=== PATIENT | male | born 1940 | race Caucasian/White ===

== ENCOUNTER 2016-12-02 05:34 | Inpatient (IN) | payer MEDICARE ==
[~2016-12-02] VITALS: Ht 177.8 cm; Wt 85.0 kg
[2016-12-02] VITALS (8 sets, daily range): BP systolic 110–132; BP diastolic 66–75; PULSE 50–77; RESP 12–18; O2SAT 95–100
[2016-12-02] MEDS: Lactated Ringer's 1,000 ML IV SCH ×3 (05:00→06:15)
[~2016-12-02 05:34] MED LIST: MULT-1018 PO; excedrin
[2016-12-02] MEDS ORDERED: tylenol PO (05:48)
[2016-12-02] MEDS ORDERED: CeFAZolin 2 Gm/50 mL D5W Duplex Bag IV ONE (05:54)
[2016-12-02] MEDS ORDERED: Vancomycin 1,000mg/200 mL NS IV ONE (05:55)
[2016-12-02] MEDS ORDERED: CeFAZolin Inj 2 GM in IV Premix 1 EACH IV SCH (06:30)
[2016-12-02] MEDS ORDERED: Lactated Ringer's 1,000 ML IV SCH (07:05)
[2016-12-02] MEDS ORDERED: MetoCLOpramide 5 mg/mL 2 mL Inj IVPUSH PRN (07:05)
[2016-12-02] MEDS ORDERED: Ondansetron 2 mg/mL 2 mL Inj IVPUSH PRN ×2 (07:05→09:55)
[2016-12-02] MEDS ORDERED: Dexamethasone 4 mg/mL Inj IVPUSH PRN (07:05)
[2016-12-02] MEDS ORDERED: EPHEDrine Sulfate 50 mg/mL Inj IVPUSH PRN (07:05)
[2016-12-02] MEDS ORDERED: HYDROmorphone 1 mg/mL Inj IVPUSH PRN (07:05)
[2016-12-02] MEDS ORDERED: Lactated Ringer's 500 ML IV PRN (07:05)
[2016-12-02] MEDS ORDERED: Phenylephrine 10,000 mCg/mL Inj IVPUSH PRN (07:05)
[2016-12-02] MEDS ORDERED: fentaNYL-PF 50 mCg/mL 2 mL Inj IVPUSH PRN (07:05)
--- NOTE | 2016-12-02 07:05 | PCM.HPANE ---
Patient Data Surgeon Admitting Provider: Attending Provider:Jose Manuel Garcia DO Primary Care Physician:Martin Blanchard MD Other Provider:Matilde Keyingham Anesthesia Reason for Visit Left Knee Arthritis Ht/WT & BMI Height (Feet): 5 Height (Inches): 10.00 Weight (Kilograms): 85.1 Body Mass Index 26.00 Allergies Coded Allergies: No Known Allergies (Unverified , 11/26/16) Past Anesthesia History Anesthesia History: Denies:: Abnormal Airway, Anesthesia Reactions, Difficult Intubation, Fam Anesthesia Reaction Diabetes History Hx Diabetes?: No MRSA MRSA: No Medications Blood Thinner: Aspirin Hypertension Medication: No Home Meds Incl Beta Karsten: No Reported Medications [tylenol] No Conflict [id number] Mg PO prn p 12/02/16 Multivitamin (Multi Vitamin Daily)1 Each Tablet2 Each PO DAILY 30 Days Ref 0 11/26/16 Discontinued Reported Medications [excedrin] No Conflict Check2 Tab DAILY 11/26/16 History History of ENT Problems?: No HEENT History: Denies:: Abnormal Airway Cataracts Difficult Intubation Dysphagia Glaucoma Hearing Problem Sinus Problem TMJ Denture Type: None Teeth Condition: Within Normal Limits Hx of Heart Problems?: No Cardiovascular History: Denies:: AICD Abdominal Aortic Aneurism Atrial Fibrillation Cardiac Surgery Congestive Heart Failure Coronary Artery Disease Edema Heart Murmur Hypertension Irregular Heartbeat Pacemaker Peripheral Vascular Rheumatic Fever Hx of Respiratory Problem?: No Respiratory History: Denies:: Asthma COPD Emphysema Oxygen Administration Pneumonia Tuberculosis Use of C-PAP Machine Use of Inhalers / NEBS Hx Neurologic Problems?: No Neurological History: Denies:: Alzheimer's Disease CVA Dementia Dizziness Headaches Multiple Sclerosis Parkinson's Disease Seizures Hx of GI Problems?: No Hx of Problems?: No Genitourinary History: Denies:: Kidney Stones Urinary Tract Infection Male Hx: Positive for:: Prostate Problems (TURP) Skin History: Positive for:: History Skin Disorders? (blackened great toe right ) Hx Musculoskeletal Problems?: Yes Musculoskeletal History: Positive for:: Joint Replacement (prior right knee ) Musculoskeletal Trauma (left knee current admission problem) Osteoarthritis Denies:: Back Injury Fibromyalgia Myasthenia Gravis Systemic Lupus Hx of Psycho/Social Problems?: No Psycho Social History: Denies:: Anxiety Bipolar Disorder Hx Depression Hx Surgeries?: Yes (right total knee, turp) Hx Any Other Health Problems?: Yes Other History: Denies:: Cancer Thyroid Disease History Blood Transfusions: Positive for:: Accept Blood Products? Denies:: Blood Transfusions Hx Diabetes: No Hx Alcohol Use: NoHx Substance Use: NoHave You Smoked inLast 12 mo: No Stop/Bang Treated for Sleep Apnea?: No Do You Have a CPAP Machine?: No S-Snoring: Do You Snore Loudly: No T-Tired: feel tired, fatigued: No O-Obsered: Observed not breath: Yes P-Blood Pressure: treated: No B- Body Mass Index > 35 kg/m2: No A- Age over 50: Yes N- Neck Large Circumference: No G- Gender Male: Yes ALYCE Total Score: 3 ALYCE Risk Assessment: Low Risk, <3 Yes Risk Assessment Category Category 1A: Patient has history of documented sleep apnea, and HAS NOT received any narcotic, sedative or anesthesia administration during this stay. Category 1B: Patient has history of documented sleep apnea, and HAS received any narcotic , sedative or anesthesia administration during this stay Category 2: Patient has SUSPECTED Obstructive Sleep Apnea, and HAS received any narcotic , sedative or anesthesia administration during this stay. Category 3: Patient has SUSPECTED Obstructive Sleep Apnea and HAS NOT received narcotic, sedative or anesthesia administration during this stay. Category 4: Outpatient in Procedural Areas with known sleep apnea or who screen positive for High Risk via the STOP/BANG questionnaire. Exam Exam Vital Signs Vital Signs Date Time Temp Pulse Resp B/P Pulse Ox O2 Delivery O2 Flow Rate FiO2 12/02/16 06:10 36.1 50 18 132/73 95 Room Air General Appearance: Alert, Oriented X3, Cooperative, No Acute Distress HEENT/AIRWAY: MP 2 Lungs: Clear to Auscultation, Normal Air Movement Heart: Exam Unremarkable, Regular Rate/Rhythm, No Murmurs/Rubs/Gallops Meds/Labs/Diagnostics Admission Meds Current Medications Lactated Ringer's (Lr) 1,000 ml @ 120 mls/hr [id number] IV Last administered on t 05:38; Start 12/02/16 at 05:00; Stop 12/02/16 at 13:19 Plan Impression Patient chart reviewed, patient interviewed and anesthestic plan with risks, benefits, and alternatives discussed, and informed consent obtained. ASA Physical Status: ASA2 Mod Systemic Disease Anesthetic Plan: GA, Regional Block, SAB Bene/Risks/Altern/Consents: Yes HP Complete Prior to Induction: Yes Elías Ayers MD Dec 02, 2016 07:05
[2016-12-02] MEDS ORDERED: Tranexamic Acid 100 mg/mL 10 mL Inj ONE (07:15)
[2016-12-02] MEDS ORDERED: 0.9% Sodium Chloride 200 ML ONE (07:15)
[2016-12-02] MEDS ORDERED: Bupivacaine Liposome 1.3% 20 mL Inj ONE (07:39)
[2016-12-02] MEDS ORDERED: Vancomycin Inj 1,000 MG in IV Premix 1 EACH IV SCH (08:00)
[2016-12-02] MEDS ORDERED: Bupivacaine Liposome 1.3% 20 mL Inj NERVEBLOCK ONE (08:00)
[2016-12-02] MEDS ORDERED: Tranexamic Acid 100 mg/mL 10 mL Inj IV SCH (08:00)
[2016-12-02] MEDS ORDERED: Lactated Ringer's 1,000 ML IV ONE (08:45)
[2016-12-02] MEDS ORDERED: Bupivacaine Liposome 1.3% 20 mL Inj INFILTRATE ONE (09:07)
[2016-12-02] MEDS ORDERED: 0.9% Sodium Chloride 10 mL Inj INFILTRATE ONE (09:07)
[2016-12-02] MEDS ORDERED: Bupivacaine-MPF 0.5% W/EPI 30 mL Inj INFILTRATE ONE (09:07)
[2016-12-02] MEDS: 0.9% Sodium Chloride 1,000 ML IV SCH (09:53)
[2016-12-02] MEDS ORDERED: diphenhydrAMINE 25 mg Capsule PO PRN (09:55)
[2016-12-02] MEDS ORDERED: hydrOXYzine Pamoate 25 mg Capsule PO PRN (09:55)
[2016-12-02] MEDS ORDERED: Magnesium Hydroxide 10 mL Oral Concentration PO PRN (09:55)
[2016-12-02] MEDS ORDERED: Polyethylene Glycol (PEG) 17 Gm Powder PO PRN (09:55)
[2016-12-02 10:44] LABS: APPEARANCE,URINE HAZY (CLEAR,HAZY); COLOR,URINE STRAW (YELLOW); OCCULT BLOOD,URINE NEGATIVE (NEGATIVE); UROBILINOGEN,URINE NORMAL (NORMAL)
--- NOTE | 2016-12-02 10:51 | DRSVH ---
PROCEDURE: X-RAY LEFT KNEE, ONE OR TWO VIEWS ([id number]) INDICATIONS: post op TECHNIQUE: 2 view(s) of the knee acquired. COMPARISON: None. FINDINGS: Bones: Patient is status post knee joint arthroplasty. Hardware components are in expected position s. Visualized bony structures are intact. Soft tissues: Overlying postoperative changes are noted. IMPRESSION: Normal postoperative alignment after left total knee arthroplasty. Dictated by: Malik Puga M.D. on 12/02/2016 at 10:49 Approved by: Malik Puga M.D. on 12/02/2016 at 10:50
[2016-12-02] MEDS ORDERED: Ketamine 10 mg/mL 20 mL Inj ONE (11:07)
[2016-12-02] MEDS ORDERED: fentaNYL-PF 50 mCg/mL 2 mL Inj ONE (11:07)
[2016-12-02] MEDS ORDERED: Ondansetron 2 mg/mL 2 mL Inj ONE (11:07)
[2016-12-02] MEDS ORDERED: Propofol 10,000 mCg/mL 20 mL Inj ONE (11:07)
[2016-12-02] MEDS ORDERED: Dexamethasone 4 mg/mL Inj ONE (11:07)
--- NOTE | 2016-12-02 11:18 | OP ---
[address] [address] OPERATIVE REPORT PATIENT: JOSE MANUEL HARDIN : 1940 MR#: [id number] ADMIT: 12/02/2016 JOB ID: [id number] DATE OF SURGERY: 12/02/2016 PREOPERATIVE DIAGNOSIS(ES): Left knee degenerative joint disease. POSTOPERATIVE DIAGNOSIS(ES): Left knee degenerative joint disease. PROCEDURE: Left total knee arthroplasty. SURGEON: Jose Manuel Garcia DO ADULT BASIC EDUCATION TEACHER: Isa An PA-C, and Val Pablo DO, PGY1 INDICATIONS: The patient is a 75-year-old male with left knee severe degenerative arthritis who has failed conservative measures and wished to proceed with a left total knee arthroplasty. We discussed the risks, benefits, and possible complications of surgery including, but not limited to, injury to nerves and vessels, infection, bleeding, incomplete relief of symptoms, stiffness, need for additional procedures. The patient had good understanding, all questions were answered. He wished to proceed. PROCEDURE IN DETAIL: The patient is brought to the operating room. He was given a preoperative antibiotic and spinal block. The left lower extremity was sterilely prepped and draped, and a tourniquet was used for hemostasis. An incision was made over the left knee over the medial aspect for medial and longitudinal parapatellar approach. Dissection was carefully carried through the subcutaneous tissue. Electrocautery was used for hemostasis. A split was then made in the quad tendon, leaving a cuff of tissue for repair. This was taken along the medial retinaculum to a point just distal to the tibial tubercle and a small medial release was performed. A portion of the fat pad was removed, as was a portion of the anterior horn, medial and lateral menisci. The patella was then everted and the femur was then instrumented with the intramedullary guide jackie and the distal femoral cutting jig was placed with a 5 degree distal valgus cut angle, 10 mm planned for resection and the cut was performed. The tibial cut was performed next with an extramedullary tibial cutting guide placed parallel to the long axis of the tibia. The cut was performed initially. However, I felt was inadequate and did an additional tibial cut. Next, the femur was sized, felt to be a size 8, and a 3 degree external rotation block was placed. The guide pins were placed and the four-in-one cutting block was placed. The distal femoral cuts were performed. The box cut was then performed and the tibia was then sized, felt to be a size 7. We then trialed the knee and it was a bit tight medially. Some additional medial release was performed. The remainder of the medial and lateral menisci were also removed, as were the posterior osteophytes. The femur was then drilled. The tibia was drilled and punched. The patella was resurfaced with a free hand type technique, cut from initial thickness of 24 to a thickness of 14, and a 38 mm patellar button was chosen, drilled for trial and had excellent tracking. The bony surfaces were then washed and dried. The components were cemented into position beginning with the DePuy Attune posterior stabilized rotating platform tibia and 5 mm thickness poly, followed by the DePuy Attune size 8 posterior stabilized femur. All excess cement was removed and the implants were held in full extension while the cement was allowed to polymerize. The tourniquet was then let down. Electrocautery was used for hemostasis. A second gram of TXA was given and the wound was again irrigated and then closed with interrupted #1 Surgilon and 0 Vicryl to close the capsule and quad tendon. The subcu was closed with 2-0 and the skin was closed with 3-0 Stratafix suture. Mixture of Exparel with Marcaine was added as an adjunct local anesthetic, and sterile dressings were applied. The patient tolerated the procedure well. Blood loss was 75 cc. POSTOPERATIVE PROTOCOL: Have the patient weightbear to tolerance. Use a walker or a cane for ambulation, and plan to use aspirin 325 b.i.d. for DVT prophylaxis for six weeks postoperatively. [facility]
--- NOTE | 2016-12-02 11:30 | NUR ---
arrived to room 1010 fro PACU alert and oriented, accompanied by , VSS, ortho signs OK, denies nausea or pain, eating and drinking well. good UOP
[2016-12-02] MEDS ORDERED: HYDROmorphone 0.5 mg/0.5 mL iSecure Syringe IVPUSH PRN (12:15)
--- NOTE | 2016-12-02 16:20 | NUR ---
Evaluation completed. Please go to "Notes" then click on "Assessments and Notes" (bottom left corner of screen). Then select appropriate discipline tab on top of screen.
[2016-12-02] MEDS: CeFAZolin Inj 2 GM in IV Premix 1 EACH IV SCH ×2 (18:11→23:46)
[2016-12-02] MEDS: Sodium Chloride LOK Flush 10 mL Syringe IV SCH (18:12)
[2016-12-02] MEDS: Senna-Docusate 8.6-50 mg Tablet PO SCH (22:05)
[2016-12-03 00:10] VITALS: BP 124/67; PULSE 70; RESP 17; O2SAT 96
[2016-12-03] MEDS: Sodium Chloride LOK Flush 10 mL Syringe IV SCH ×4 (00:53→20:11)
[2016-12-03] MEDS: 0.9% Sodium Chloride 1,000 ML IV SCH ×3 (00:53→15:53)
[2016-12-03] MEDS: Ketorolac 15 mg/mL Inj IVPUSH PRN ×3 (01:29→13:35)
--- NOTE | 2016-12-03 04:54 | NUR ---
Pain Pt progressing very well post surgical tonight. Tolerated full dinner without nausea, taking adequate PO liquids, saline locked IV. Pain slowly increased after midnight, Toradol and Tylenol given with good effectiveness; pt able to sleep. Hourly rounding ongoing.
[2016-12-03 04:56] VITALS: BP 120/71; PULSE 63; RESP 17; O2SAT 97
[2016-12-03 05:38] LABS: BASOPHILS % (AUTO) 0.2 % (0-3); EOSINOPHILS % (AUTO) 0.7 % (0-5); MONOCYTES % (AUTO) 13.4 % (4-12); Mean Corpuscular Hemoglobin 29.7 pg (27.0-35.0); Mean Corpuscular Volume 88.6 fL (81-100); Platelet Count 208 bil/L (150-400)
[2016-12-03 07:59] VITALS: BP 120/77; PULSE 61; RESP 17; O2SAT 94
[2016-12-03] MEDS: Senna-Docusate 8.6-50 mg Tablet PO SCH ×2 (09:20→20:10)
--- NOTE | 2016-12-03 09:59 | PCM.PNORTH ---
Subjective Date of Service: Dec 03, 2016 Visit Information: Reason for Visit Left Knee Arthritis Surgery/Surgery Date L TKA 12/02/2016 Post-Op Day # 1 Date of Admission: Dec 02, 2016 at 11:06 Hospital Day # Subjective Patient states that he has no pain. He attempted standing yesterday with physical therapy but the nerve block was still in place and he had no feeling in the left leg. He was up with physical therapy this morning and did quite well. Postop General: No Complaints Pain Management: PO, IV Push Objective Exam Objective Patient was seen sitting up in a chair Vital Signs and I/O Vital Sign - Last Date Time Temp Pulse Resp B/P Pulse Ox O2 Delivery O2 Flow Rate FiO2 12/03/16 07:59 36.6 61 17 120/77 94 Room Air 12/02/16 11:22 2.00 Intake and Output 12/02/16 12/02/16 12/03/16 Cumulative From/Thru 15:00 23:00 07:00 11/26/16 10:01 - 12/03/16 04:56 Intake Total 870 ml 1000 ml 2035 ml 5105 ml Output Total 875 ml 1600 ml 1200 ml 3675 ml Balance -5 ml -600 ml 835 ml 1430 ml Intake Oral 1000 ml 920 ml 1920 ml IV Total 870 ml 1115 ml 3185 ml Output Urine Total 800 ml 1600 ml 1200 ml 3600 ml Estimated Blood Loss 75 ml 75 ml # Bowel Movements 0 0 Lab & Micro Results Laboratory Tests Test 12/02/16 10:26 12/03/16 05:05 Urine Color Straw (YELLOW) Urine Appearance Hazy (CLEAR,HAZY) Urine pH 6.0 (5.0-8.0) Urine Specific [place] 1.010 (1.003-1.035) Urine Protein Negativemg/dL (NEG,TRACE) Urine Glucose (UA) Negativemg/dL (NEGATIVE) Urine Ketones Negativemg/dL (NEGATIVE) Urine Occult Blood Negative (NEGATIVE) Urine Nitrite Negative (NEGATIVE) Urine Bilirubin Negative (NEGATIVE) Urine Urobilinogen Normalmg/dL (NORMAL) Urine Leukocyte Esterase Negative (NEGATIVE) Urine RBC 0-2/hpf (0-2) Urine WBC 0-5/hpf (0-5) Urine Epithelial Cells Occasional/hpf (NONE-MOD) Urine Crystals None seen (NONE SEEN) Urine Bacteria None/hpf (NONE-FEW) Urine Hyaline Casts None/lpf (NONE) Urine Granular Casts None seen (NONE SEEN) Urine Waxy Casts None seen (NONE SEEN) Urine Red Blood Cell Casts None seen (NONE SEEN) Urine White Blood Cell Casts None seen (NONE SEEN) Urine Mucus None seen (None Seen) Urine Trichomonas None seen (NONE SEEN) Urine Yeast None (NONE SEEN) Urinalysis Comment None Urine Culture Reflexed Not indicated White Blood Count 12.2th/mm3 (3.8-10.1) Red Blood Count 4.48mil/mm3 (4.40-5.80) Hemoglobin 13.3g/dL (13.8-17.2) Hematocrit 39.7% (41.0-50.0) Mean Corpuscular Volume 88.6fL (81-100) Mean Corpuscular Hemoglobin 29.7pg (27.0-35.0) Mean Corpuscular Hemoglobin Concent 33.5% (32.0-37.0) Red Cell Distribution Width 13.1% (12.3-15.4) Platelet Count 208bil/L (150-400) Neutrophils (%) (Auto) 70.0% (40-74) Lymphocytes (%) (Auto) 15.5% (14-46) Monocytes (%) (Auto) 13.4% (4-12) Eosinophils (%) (Auto) 0.7% (0-5) Basophils (%) (Auto) 0.2% (0-3) Sodium Level 140mEq/L (134-144) Potassium Level 3.9mEq/L (3.5-5.2) Chloride Level 105mEq/L (97-108) Carbon Dioxide Level 21mmol/L (18-29) Blood Urea Nitrogen 18mg/dL (8-27) Creatinine 0.75mg/dL (0.76-1.27) Estimat Glomerular Filtration Rate 108mL/min (>59) Glucose Level 114mg/dL (60-99) Calcium Level 8.6mg/dL (8.5-10.1) Result Diagram: 12/03/16 0505 12/03/16 0501 General Appearance: Alert, Oriented X3, Cooperative, No Acute Distress Extremities: Distal Pulses Palpable, No Compartment Syndrom Noted, Thigh & Calf Soft/Nontender Postop Sensory Motor: Distal Motor Intact, Distal Sensation Intact, NVI Distally SURGICAL WOUND : Wound Location/Description Left leg: Surgical dressing is clean dry and intact. No direct observation of the wound. Activity: Activity per PT Catheters: None Assessment & Plan Impression POD #1 status post left total knee arthroplasty Problems: Plan Weightbearing: Weightbearing as tolerated with walker DVT prophylaxis: aspirin 325 mg twice a day 6 weeks Physical therapy for transfers, progressive ambulation, therapeutic exercise Wound care: PA will change dressing tomorrow POD #2 Discharge plan: Discharge home tomorrow. The [facility]'s [place] [facility] [place] [facility] Their plan tomorrow is to have a private car to pick her up at the hotel around 11 and then come over to the hospital to pick him up for discharge home around noon Start outpatient physical therapy next week Follow-up plan: In 2 weeks at [facility] with PA for wound check and at [address] Garcia with x-rays Pain Management: Shepherd, Toradol, Tylenol, Vistaril VTE Prophylaxis: SCDs, Other (aspirin 325 mg twice a day) Resuscitation Status: CPR: Attempt Resuscitation Elisha Summers PA-C Dec 03, 2016 09:59
--- NOTE | 2016-12-03 10:31 | PCM.ANEP1 ---
Post Anesthesia PACU Phase 1 Assessment Vital Signs Vital Signs Date Time Temp Pulse Resp B/P Pulse Ox O2 Delivery O2 Flow Rate FiO2 12/03/16 07:59 36.6 61 17 120/77 94 Room Air 12/03/16 04:56 36.5 63 17 120/71 97 Room Air Level of Alertness: Awake, talking Pain: No Pain Scale Score: 3 Nausea or Vomiting: No CV Function & Hydration Stable: Yes Airway Device: Oralpharangeal Airway Oxygen Delivery: Simple Mask Lungs: Clear to Auscultation, Normal Air Movement Dermatome Level: L3,4 (Thigh) PACU Phase 2 Assessment Complications: No Follow up Care: No Patient Instructions Provided: N/A Elías Ayers MD Dec 03, 2016 10:31
--- NOTE | 2016-12-03 11:56 | NUR ---
Evaluation completed. Please go to "Notes" then click on "Assessments and Notes" (bottom left corner of screen). Then select appropriate discipline tab on top of screen.
[2016-12-03 13:45] VITALS: BP 110/67; PULSE 63; RESP 18; O2SAT 97
--- NOTE | 2016-12-03 14:01 | NUR ---
Activity Pt ambulated in hallway twice with PT today, and another time with me. Pt motivated to walk and be active; he is anticipating discharge tomorrow. Pt has pain that he rates as 3/10. Receiving good pain relief with 15 mg IVP Toradol and 650 mg of PO Tylenol. Advised pt to try just Tylenol or hydrocodone this p.m. to see of that provides adequate pain relief before he discharges.
--- NOTE | 2016-12-03 14:50 | NUR ---
Social Work- Initial Assessment/ Readiness for Discharge/Multi-Disciplinary Rounds Data: See Initial Assessment. Pt is a 75 year old male admitted 12/02/16 for left knee arthritis s/p TKA. Pt is POD 1. Ortho is primary. Per discussion with Ortho and air force pilot, pt is doing well and will likely discharge tomorrow with outpt services. Pt's insurance is [email or web address]. Pt's PCP is Martin Blanchard MD. Pt's NOK/DPOA is Jayne Matthews [phone]. SW met with pt and at bedside regarding discharge plan, SW role explained. Pt alert and oriented x3. Pt's capacity for self-care assessed. Pt resides on [address] with his where he is independent at baseline. Pt [address] with two homes, a log home and a [facility] suite. Pt uses no DME at baseline but has a walker and cane available at home. Pt continues to drive. Pt has no HH or SNF history. Pt has LTC through [facility]. Pt has no VA insurance. 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 Pt reports that he has his outpt services already scheduled. Pt's DPOA/AD is complete and pt's is aware of his wishes. No copy is on file at [facility] but Jayne is aware of where it is at home. Pt has chartered a car to take him home tomorrow from the hospital. No discharge concerns identified. SW provided phone number and plan on whiteboard, in addition to Discharge Planning Checklist. SW instructed pt and to contact AUTOMOTIVE TEACHER if needs are identified. 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 Pt's is independent and capable of his care at home. Pt is alert and oriented and able to speak logically and clearly. For these reasons, no concerns related to pt's capacity for self-care are identified. SW will continue to follow. Assessment: Pt who is independent at baseline and who will receive outpt PT. Plan: Pt to discharge home with outpt PT and chartered vehicle to transport with . No discharge needs identified at this time. SW will continue to follow. VIVI Stovall Addendum: 12/03/16 at 1458 by SHAKIRA TURK Amended: Links added.
[2016-12-03] MEDS: HYDROcodone-APAP 7.5-325 mg Tablet PO PRN (19:23)
[2016-12-03 20:00] VITALS: BP 139/79; PULSE 70; RESP 16; O2SAT 97
[2016-12-04] MEDS: 0.9% Sodium Chloride 1,000 ML IV SCH (00:17)
[2016-12-04] MEDS: HYDROcodone-APAP 7.5-325 mg Tablet PO PRN ×2 (01:01→08:00)
--- NOTE | 2016-12-04 04:18 | NUR ---
Pain/Activity Patient A&OX3 and pleasant this evening. Complains of 2/10 knee pain. 1 tab norco given, and upon reassessment patient is sleeping and appears comfortable. Has been able to achieve adequate sleep this evening. Left lower extremity is warm to touch, cap refill <3 secs, and pedal pulse is weak but palpable. Will continue to monitor and continue Q1 hour checks.
[2016-12-04 04:53] VITALS: BP 150/80; PULSE 61; RESP 16; O2SAT 95
[2016-12-04] MEDS: Senna-Docusate 8.6-50 mg Tablet PO SCH (08:01)
[2016-12-04] MEDS: Sodium Chloride LOK Flush 10 mL Syringe IV SCH (08:01)
--- NOTE | 2016-12-04 09:18 | PCM.PNORTH ---
Subjective Date of Service: Dec 04, 2016 Visit Information: Reason for Visit Left Knee Arthritis Surgery/Surgery Date Post-Op Day # 2 Date of Admission: Dec 02, 2016 at 11:06 Hospital Day # Subjective Patient states he is feeling well today and his pain is well controlled. He states he was up with physical therapy and walked around the halls without little discomfort. Postop General: No Complaints Pain Management: PO, IV Push Objective Exam Objective Patient laying in bed Vital Signs and I/O Vital Sign - Last Date Time Temp Pulse Resp B/P Pulse Ox O2 Delivery O2 Flow Rate FiO2 12/04/16 04:53 36.7 61 16 150/80 95 Room Air 12/02/16 11:22 2.00 Intake and Output 12/03/16 12/03/16 12/04/16 Cumulative From/Thru 15:00 23:00 07:00 11/26/16 10:01 - 12/04/16 04:53 Intake Total 1200 ml 1400 ml 7705 ml Output Total 1000 ml 1550 ml 6225 ml Balance 200 ml -150 ml 1480 ml Intake Oral 1200 ml 1400 ml 4520 ml IV Total 3185 ml Output Urine Total 1000 ml 1550 ml 6150 ml Estimated Blood Loss 75 ml # Bowel Movements 1 0 1 Result Diagram: 12/03/16 0505 12/03/16 0505 General Appearance: Alert, Oriented X3, Cooperative, No Acute Distress Extremities: No Compartment Syndrom Noted, Thigh & Calf Soft/Nontender, Tenderness/Swelling Noted Postop Sensory Motor: Distal Motor Intact, Movement in Toes, Distal Sensation Intact, NVI Distally SURGICAL WOUND : Wound Location/Description Perioperative dressings changed to a non-adherent pad and bilateral compression stockings Incision General Appearance: Well Approximated, Incision Healing Dressing & Drainage Status: Changed, Purulent Drainage Noted Activity: Activity per PT Catheters: None Assessment & Plan Impression POD#2 left total knee arthroplasty Problems: Plan Weightbearing: Weightbearing as tolerated with walker DVT prophylaxis: Aspirin 325 mg twice a day 6 weeks Wound care: Keep incision clean and dry. Use the pad over incision to avoid irritation from compression stockings. Wear your compression stockings at all times during the day when up and about to reduce swelling and blood clots. Shower instructions: May shower tomorrow as long as the incision is not draining. Do not submerge or soak the incision. Do not scrub the incision. Pat dry. Discharge plan: Discharge home today. The patient's is staying across a street at the [facility]. Their plan tomorrow is to have a private car to pick her up at the hotel around 11 and then come over to the hospital to pick him up for discharge home around noon. Start outpatient physical therapy next week Follow-up plan: In 2 weeks at [facility] with WESLEY for wound check and at [address] Garcia with x-rays VTE Prophylaxis: SCDs, Other (aspirin 325 mg twice a day) Resuscitation Status: CPR: Attempt Resuscitation Isa An PA-C Dec 04, 2016 09:18
--- NOTE | 2016-12-04 09:34 | PCM.DIORTH ---
Ortho Discharge Instruction Date of Service: Dec 04, 2016 Dates of Hospitalization Date of Hospital Admission Dec 02, 2016 at 11:06 Providers Admitting Physician: Jose Manuel Garcia DO Primary Care Physician: Martin Blanchard MD Attending Physician: Jose Manuel Garcia DO Activity Discharge Activity-General: Elevate & ice extremity, Ice incision 3-5 time/day for 20min Left Lower Extremity: Weight Bearing as tolerated Discharge Assist Device: Front Wheeled Walker Dressing and Incisional Care Discharge Dressing Care: Allow Steri Stripes to fall off Discharge Hygiene: May shower, DO NOT soak incision under water, NO bathtub, hot tub or whirlpool Additional Instructions Discharge Instructions Weightbearing: Weightbearing as tolerated with walker DVT prophylaxis: Aspirin 325 mg twice a day 6 weeks Wound care: Keep incision clean and dry. Use the pad over incision to avoid irritation from compression stockings. Wear your compression stockings at all times during the day when up and about to reduce swelling and blood clots. Shower instructions: May shower tomorrow as long as the incision is not draining. Do not submerge or soak the incision. Do not scrub the incision. Pat dry. Start outpatient physical therapy next week Follow-up plan: In 2 weeks at [facility] with WESLEY for wound check and at [address] Garcia with x-rays Isa An PA-C Dec 04, 2016 09:34
[2016-12-04] MEDS ORDERED: HYDR-4003 PO (09:36)
[2016-12-04] MEDS ORDERED: Aspirin-Expunged Drug, Do Not Renew! PO (09:36)
--- NOTE | 2016-12-04 09:40 | PCM.DC.ORT ---
Discharge Summary Date of Service: Dec 04, 2016 Date of Hospital Admission: Dec 02, 2016 at 11:06 Date of Surgery: Dec 02, 2016 Date of Discharge: Dec 04, 2016 Reason for Hospitalization: Left knee osteoarthritis Procedures Performed: Left total knee arthroplasty Hospital Course: The patient was admitted to the hospital on 12/02/2016 and underwent the above procedure. Antibiotic prophylaxis consisting of Ancef and vancomycin. The surgeon was Dr. Garcia. A Chavez was placed perioperatively. Patient tolerated the procedure well and was transferred to recovery room in stable condition. Chavez was discontinued on postop day 1. Patient had physical therapy to work on ambulation and transfers. Weightbearing as tolerated with walker. Pain was managed with Dilaudid, Percocet, Vistaril, Toradol. DVT prophylaxis: Aspirin 325 mg twice a day 6 weeks and SCDs. Hospital course was located. Patient was able to perform adequately enough to be discharged home on postop day 2. Follow-up: at [facility] 2 weeks postop for wound check and at [address] Garcia with x-ray. Diagnosis at Time of Discharge Status post left total knee arthroplasty Problems: Discharge Instructions: Weightbearing: Weightbearing as tolerated with walker DVT prophylaxis: Aspirin 325 mg twice a day 6 weeks Wound care: Keep incision clean and dry. Use the pad over incision to avoid irritation from compression stockings. Wear your compression stockings at all times during the day when up and about to reduce swelling and blood clots. Shower instructions: May shower tomorrow as long as the incision is not draining. Do not submerge or soak the incision. Do not scrub the incision. Pat dry. Start outpatient physical therapy next week Follow-up plan: In 2 weeks at [facility] with PA for wound check and at [address] Garcia with x-rays ([tylenol]) 500 MG PO prn ([Aspirin-Expunged Drug, Do Not Renew!]) 325 MG TABLET 325 MG PO BID Hydrocodone-Acetaminophen 5-325 mg (Hydrocodone-Acetaminophen 5-325 mg) 1 Each Tablet 1 TABLET PO Q6H PRN PRN For Pain Multivitamin (Multi Vitamin Daily) 1 Each Tablet 2 EACH PO DAILY Isa An PA-C Dec 04, 2016 09:40
--- NOTE | 2016-12-04 11:13 | NUR ---
Social Work- Discharge/Multi-Disciplinary Rounds Data: EMR reviewed. Pt is on day 2 of hospitalization for TKA. Pt is POD 2. Per multi-disciplinary rounds with television agent and Ortho, pt to discharge today. Discharge orders are active. Pt will discharge home with , transport via chartered vehicle to [facility]. Pt has all necessary DME at home. Pt's outpt PT is scheduled. Pt to discharge home with no needs identified. Assessment: Pt who is independent at baseline. Plan: Pt will discharge home with , transport via chartered vehicle to [facility]. No discharge needs identified. VIVI Stovall
--- NOTE | 2016-12-04 12:31 | NUR ---
DC Pt leave for home with family. All discharge instructions reviewed with pt and . Pt states that he understands all instructions including the higher dose of ASA BID for 6 weeks. PRAFUL wrap removed and ABD pad with harshad hose placed over leg. Staff takes pt out in WC to family van. All belonging in hand. Prescription given to to fill earlier. Care discontinues
== END 2016-12-04 12:30 | disposition home or self-care (01) | DRG 470 ==
LOC: SAS 05:34 → OSC 11:06
PROVIDERS: ADMIT Orthopaedic Surgery; ATTEND Orthopaedic Surgery
PROC: 0SRD0J9 Replacement of Left Knee Joint with Synthetic Substitute, Cemented, Open Approach (ICD-10-PCS; principal; 2016-12-02 07:30)
DX: M17.12 Unilateral primary osteoarthritis, left knee (principal); Z96.651 Presence of right artificial knee joint